=== PATIENT | female | born 1950 | race Caucasian/White ===

== ENCOUNTER 2022-10-10 08:08 | Day surgery (SDC) | payer MEDICARE ==
[~2022-10-10] VITALS: Ht 165.1 cm; Wt 68.1 kg
[2022-10-10 08:30] VITALS: BP 138/81
[2022-10-10] MEDS ORDERED: MIDAZolam 1 MG/ML 5ML VIAL ONE (08:34)
[2022-10-10] MEDS ORDERED: fentaNYL/PF 50MCG/1 ML 2ML syringe ONE (08:34)
[2022-10-10] MEDS ORDERED: LIDOcaine Viscous 15ml cup ONE (08:35)
[2022-10-10] MEDS ORDERED: DICL1PAT13 TOP (09:22)
[2022-10-10] MEDS ORDERED: MECO10005 (09:22)
[2022-10-10] MEDS ORDERED: BUSP5TAB3 PO (09:22)
[2022-10-10] MEDS ORDERED: MAGN200T8 PO (09:22)
[2022-10-10] MEDS ORDERED: CRAN500C4 PO (09:22)
[2022-10-10] MEDS ORDERED: LOSARTAN (09:22)
[2022-10-10] MEDS ORDERED: SYN0.088T PO (09:22)
[2022-10-10] MEDS ORDERED: ESTR42.53 VG (09:22)
[2022-10-10] MEDS ORDERED: LIPA1CAP18 PO (09:22)
[2022-10-10] MEDS ORDERED: PANT-47 PO (09:22)
[2022-10-10] MEDS ORDERED: DICL20GE (09:22)
[2022-10-10] MEDS ORDERED: SIME125T62 (09:22)
[2022-10-10] MEDS ORDERED: SENN-263 PO (09:22)
[2022-10-10 09:39] VITALS: BP 111/58
[2022-10-10 09:49] VITALS: BP 133/72
[2022-10-10 09:59] VITALS: BP 128/65
[2022-10-10 10:09] VITALS: BP 120/60
== END 2022-10-10 10:32 | disposition home or self-care (01) ==
LOC: GI LAB 08:08
PROVIDERS: ATTEND Internal Medicine Gastroenterology
DX: K29.50 Unspecified chronic gastritis without bleeding (principal); K30 Functional dyspepsia
CPT/HCPCS: 43239; J2250; J3010; J7030; Z7512; 99152; A4620